=== PATIENT | female | born 1990 | race Caucasian/White ===

== ENCOUNTER → 2019-11-11 11:38 | Outpatient (CLI) | payer OTHER, SELFPAY ==
[2019-11-11 10:36] VITALS: BMI 27.4
[2019-11-11 12:10] LABS: Absolute Lymphocyte Count 1.93 X10^3/uL (0.83-4.51); Absolute Neutrophil Count 7.7 X10^3/uL (2.0-7.7); Basophil# 0.03 X10^3/uL; Basophil% 0.3 % (0-1); Eosinophil# 0.09 X10^3/uL; Eosinophils% 0.9 % (0-5); Hemoglobin 13.1 g/dL (12.0-15.0); Lymphocyte # 1.93 X10^3/ul (4.0); Lymphocyte % 18.4 % (19-41); Mean Corp Hgb Conc 33.6 g/dL (32-36); Mean Corpuscular Hgb 30.1 pg (27.0-32.0); Mean Corpuscular Volume 89.7 fL (81-99); Mean Platelet Vol. 9.8 fl (6.2-12.0); Monocyte# 0.65 X10^3/uL; Monocyte% 6.2 % (0-10); NRBC Flagged by Analyzer 0 % (0-5); Neutrophil # 7.74 X10^3/uL (2.7-7.7); Neutrophil % 73.7 % (47-70); Platelet Count 346 K/mm3 (150-450); RBC Distribution Width CV 12.1 % (11.6-14.6); RBC Distribution Width SD 39.3 fl (35.1-43.9); Red Blood Count 4.35 M/mm3 (4.2-5.4); White Blood Count 10.5 K/mm3 (4.4-11.0)
[2019-11-11 13:40] LABS: HIV - WCH Non-Reactive (Nonreactive); Hepatitis B Surface Antigen Non-Reactive (Nonreactive); Hepatitis C Antibody Non-Reactive (Nonreactive); Rubella IgG 40.2 IU/mL
[2019-11-11 18:58] LABS: Chlamydia Trachomatis by PCR Negative (Negative); Neisserai gonorrhoeae by PCR Negative (Negative); Probe Check PASS; Sample Adequacy Control PASS; Specimen Processing Control PASS
[2019-11-16 12:48] LABS: HPV Reflexed? NOT INDICATED
[2019-11-18 00:51] LABS: Rapid Plasmin Reagin (RPR) NONREACTIVE (NONREACTIVE)
== END ==
PROVIDERS: Referring Provider Obstetrics & Gynecology; Visit Provider Obstetrics & Gynecology
DX: Z34.81 Encounter for supervision of other normal pregnancy, first trimester (principal); Z12.4 Encounter for screening for malignant neoplasm of cervix
CPT/HCPCS: 36415; 85025; 86592; 86703; 86762; 86803; 86850; 86900; 86901; 87086; 87088; 87340; 87491; 87591; 88175; G0145

== ENCOUNTER → 2020-01-07 | Outpatient (CLI) | payer OTHER, SELFPAY ==
[2019-12-24 13:44] VITALS: BMI 27.4
--- NOTE | 2020-01-07 16:02 | US_ITS ---
STUDY: SECOND AND THIRD TRIMESTER OBSTETRICAL ULTRASOUND REASON FOR EXAM: Female, 29 years old ANATOMY SCREEN LMP: 08/17/2019 TECHNIQUE: Transabdominal TECHNICAL QUALITY: Adequate. PRIOR ULTRASOUND: None. FINDINGS: There is a single intrauterine fetus. The fetus is in a variable presentation. There is demonstrated cardiac activity with a heart rate of 152 bpm. There is a normal amniotic fluid volume. The largest amniotic fluid pocket measures 4.7 cm. The placenta is posterior in location and is not low lying. There are Grade 0 placental changes. The cervix measures 3.6 in length. The adnexal regions are not visualized. BIOMETRY: BPD: 4.8: 20 weeks, 3 days HC: 18.4: 20 weeks, 6 days AC: 15.4: 20 weeks, 5 days FL: 3.3: 20 weeks, 2 days CI: FL/BPD: FL/HC: FL/AC: HC/AC: age by current US: 20 weeks, 4 days. ROSA by current US: 05/22/2020. Estimated weight: 357 grams, +/- 52 grams, 48 %. age by prior US: weeks, days. ROSA by prior US: . Age by LMP: 20 weeks, 3 days. ROSA by LMP: 05/23/2020. ANATOMY: Gender: Male Cranium: Normal lateral ventricles. Normal choroid plexus. Normal cerebellum. Normal cisterna magna. Normal face, nose and lips. Chest: Normal 4-chamber heart. Abdomen/Pelvis: Normal diaphragm. Normal stomach. Normal abdominal wall. Normal cord insertion. Normal 3 vessel cord. Normal kidneys. Normal bladder. Spine: Normal cervical spine. Normal thoracic spine. Normal lumbar spine. Normal sacrum. Extremities: Normal bilateral upper extremities. Normal bilateral lower extremities. US/OB Anatomy Scan IMPRESSION: Single live fetus in a variable presentation. No demonstrated anatomic abnormality. Placenta is grade 0 and is not low-lying. Cervix is closed. age by current US: 20 weeks, 4 days. ROSA by current US: 05/22/2020. Estimated weight: 357 grams, +/- 52 grams, 48 %. Electronically Signed: Mansoor Butterfield MD at 20:45 EDT , Service support ,
== END | disposition home or self-care (01) ==
LOC: OPUS 16:02
PROVIDERS: Referring Provider Obstetrics & Gynecology; Visit Provider Obstetrics & Gynecology
DX: Z34.90 Encounter for supervision of normal pregnancy, unspecified, unspecified trimester (principal)
CPT/HCPCS: 76805

== ENCOUNTER → 2020-02-23 | Outpatient (CLI) | payer OTHER, SELFPAY ==
[2020-01-27 13:59] VITALS: BMI 27.4
[2020-02-23 09:32] LABS: Absolute Lymphocyte Count 1.66 X10^3/uL (0.83-4.51); Absolute Neutrophil Count 7.1 X10^3/uL (2.0-7.7); Basophil# 0.03 X10^3/uL; Basophil% 0.3 % (0-1); Eosinophil# 0.11 X10^3/uL; Eosinophils% 1.2 % (0-5); Hematocrit 36.4 % (37-47); Hemoglobin 11.9 g/dL (12.0-15.0); Lymphocyte # 1.66 X10^3/ul (4.0); Lymphocyte % 17.7 % (19-41); Mean Corp Hgb Conc 32.7 g/dL (32-36); Mean Corpuscular Hgb 29.8 pg (27.0-32.0); Mean Corpuscular Volume 91.2 fL (81-99); Monocyte# 0.44 X10^3/uL; Monocyte% 4.7 % (0-10); NRBC Flagged by Analyzer 0 % (0-5); Neutrophil % 75.6 % (47-70); Platelet Count 279 K/mm3 (150-450); RBC Distribution Width CV 12.6 % (11.6-14.6); RBC Distribution Width SD 41.9 fl (35.1-43.9); Red Blood Count 3.99 M/mm3 (4.2-5.4); White Blood Count 9.4 K/mm3 (4.4-11.0)
[2020-02-23 09:42] LABS: Glucose Challenge Gest 1H 50g 130 mg/dL (70-140)
== END | disposition home or self-care (01) ==
LOC: PAVLAB 09:18
PROVIDERS: Referring Provider Obstetrics & Gynecology; Visit Provider Obstetrics & Gynecology
DX: Z34.90 Encounter for supervision of normal pregnancy, unspecified, unspecified trimester (principal)
CPT/HCPCS: 36415; 82950; 85025

== ENCOUNTER 2020-03-25 21:40 | Outpatient (CLI) | payer OTHER, SELFPAY ==
[2020-03-16 11:45] VITALS: BMI 27.4
[2020-03-25 21:55] VITALS: BMI 29.7
[2020-03-25 22:01] VITALS: PULSE 95; O2SAT 99
[2020-03-25 22:02] VITALS: TEMP 37.1
[2020-03-25 22:03] VITALS: BP 114/63; PULSE 93
[2020-03-25 22:55] LABS: ROM Internal Control Test YES-OK TO RESULT pt. (Internal QC); ROM Patient Test Negative (Negative)
--- NOTE | 2020-03-27 12:51 | OB.TRI.PN ---
Progress Notes Date of Service: 03/25/20 Progress Note: Patient presents for triage evaluation secondary to questionable loss of fluid FHT: 140 Moderate variability reactive no decelerations category I tracing [place]: No regular contractions Assessment and plan: Threatened labor with negative ROM plus no rupture membranes reactive NST, reassuring maternal and status patient discharged to home to follow-up as scheduled. See problem list details for additional plan information. Laboratory Studies: Laboratory Tests 03/25/20 Range/Units 22:15 Vag Amniotic Fld Detect Negative (Negative) - Problem List (1) Vaginal discharge Status: Acute Comment: seen 03/24 ROM plus negative dc home Multi Select Codes - Urinary/Genital Urinary/Genital CPT Codes: 02133-06 non-stress test Interp
== END 2020-03-25 23:10 | disposition home or self-care (01) ==
LOC: WPOUT 21:49 → WP 21:50
PROVIDERS: Visit Provider Obstetrics & Gynecology
DX: O60.00 Preterm labor without delivery, unspecified trimester (principal); Z3A.00 Weeks of gestation of pregnancy not specified
CPT/HCPCS: 59025; 59050; 84112; 99218; G0378

== ENCOUNTER 2020-04-20 21:17 | Outpatient (CLI) | payer OTHER, SELFPAY ==
[2020-04-18 15:01] VITALS: BMI 29.7
[2020-04-20 21:33] VITALS: PULSE 82; O2SAT 100
[2020-04-20 21:35] VITALS: BP 111/66; PULSE 78; TEMP 36.9
[2020-04-20 21:53] VITALS: BMI 30.4
[2020-04-20 22:14] LABS: Color, Urine Yellow (Yellow); Glucose, Dipstick Normal (Normal); Leukocyte Esterase-Dipstick 100 /ul (Negative); Nitrite-Dipstick Negative (Negative); Occult Blood-Urine 250 /ul (Negative); Protein-Dipstick Negative (Negative); Urine Bilirubin Dipstick Negative (Negative); Urine Clarity Sl. Cloudy (Clear); Urine Urobilinogen Normal (Normal)
[2020-04-20 22:26] LABS: Ketone-Dipstick 150 mg/dl (Negative)
[2020-04-21 02:25] VITALS: BP 117/66; PULSE 94
[2020-04-21 02:26] VITALS: TEMP 37.1
--- NOTE | 2020-05-01 13:14 | OB.TRI.PN ---
Progress Notes Date of Service: 04/20/20 Progress Note: Patient presents for triage evaluation secondary to false labor FHT: 140 Moderate variability reactive no decelerations category I tracing [place]: no regular Contractions Assessment and plan: false labor Reactive NST, reassuring maternal and status patient discharged to home to follow-up as scheudled See problem list details for additional plan information. Laboratory Studies: Laboratory Tests 04/20/20 Range/Units 22:00 Urine Color Yellow (Yellow) Urine Clarity Sl. Cloudy (Clear) Urine pH 6.0 (5.0 - 8.0) Ur Specific [place] 1.020 (1.002-1.030) Urine Protein Negative (Negative) mg/dl Urine Glucose (UA) Normal (Normal) mg/dl Urine Ketones 150 H (Negative) mg/dl Urine Occult Blood 250 H (Negative) /ul Urine Nitrite Negative (Negative) Urine Bilirubin Negative (Negative) mg/dL Urine Urobilinogen Normal (Normal) mg/dl Ur Leukocyte Esterase 100 H (Negative) /ul Multi Select Codes - Urinary/Genital Urinary/Genital CPT Codes: 73177-10 non-stress test Interp
== END 2020-04-21 00:04 | disposition home or self-care (01) ==
LOC: WPOUT 21:23 → WP 21:23
PROVIDERS: Visit Provider Obstetrics & Gynecology
DX: O47.9 False labor, unspecified (principal); Z3A.00 Weeks of gestation of pregnancy not specified
CPT/HCPCS: 59025; 59050; 81002; 87086; 87088; 99218; G0378

== ENCOUNTER 2020-04-24 13:25 | Outpatient (CLI) | payer OTHER, SELFPAY ==
[2020-04-24 13:40] VITALS: BP 115/63; PULSE 113
[2020-04-24 13:42] VITALS: BP 115/63; PULSE 120; PULSE 124; TEMP 36.4; O2SAT 97
[2020-04-24 13:50] VITALS: BMI 29.6
--- NOTE | 2020-04-30 09:19 | OB.TRI.PN ---
Progress Notes Date of Service: 04/24/20 Progress Note: Patient seen in triage for rule out labor. Cervix unchanged from office and unchanged again on recheck. NST reactive. Discharged to home in stable condition. - Problem List (1) False labor Status: Acute Multi Select Codes - Urinary/Genital Urinary/Genital CPT Codes: 79893-99 non-stress test Interp
== END 2020-04-24 14:40 | disposition home or self-care (01) ==
PROVIDERS: Referring Provider Obstetrics & Gynecology; Visit Provider Obstetrics & Gynecology
DX: O47.9 False labor, unspecified (principal); Z3A.00 Weeks of gestation of pregnancy not specified
CPT/HCPCS: 59025; 59050; 99218; G0378

== ENCOUNTER → 2020-04-27 | Outpatient (CLI) | payer OTHER, SELFPAY ==
[2020-04-27 11:51] VITALS: BMI 29.6
== END | disposition home or self-care (01) ==
LOC: LABSPEC 17:13
PROVIDERS: Referring Provider Obstetrics & Gynecology; Visit Provider Obstetrics & Gynecology
DX: Z34.90 Encounter for supervision of normal pregnancy, unspecified, unspecified trimester (principal)
CPT/HCPCS: 87081

== ENCOUNTER 2020-05-07 16:35 | Inpatient (IN) | payer OTHER, SELFPAY ==
[2020-05-03 11:39] VITALS: BMI 29.6
[2020-05-07] VITALS (19 sets, daily range): BP systolic 104–130; BP diastolic 50–82; PULSE 74–113; TEMP 36.8–37.1; O2SAT 97–100; BMI 29.5
[2020-05-07 16:33] LABS: ROM Internal Control Test YES-OK TO RESULT pt. (Internal QC)
[2020-05-07 16:34] LABS: ROM Patient Test POSITIVE (Negative)
[2020-05-07 18:20] LABS: Absolute Lymphocyte Count 1.89 X10^3/uL (0.83-4.51); Absolute Neutrophil Count 9.6 X10^3/uL (2.0-7.7); Basophil# 0.03 X10^3/uL; Basophil% 0.2 % (0-1); Eosinophil# 0.08 X10^3/uL; Eosinophils% 0.6 % (0-5); Hematocrit 34.6 % (37-47); Hemoglobin 11.6 g/dL (12.0-15.0); Lymphocyte # 1.89 X10^3/ul (4.0); Lymphocyte % 15.2 % (19-41); Mean Corp Hgb Conc 33.5 g/dL (32-36); Mean Corpuscular Hgb 28.4 pg (27.0-32.0); Mean Corpuscular Volume 84.6 fL (81-99); Mean Platelet Vol. 10.5 fl (6.2-12.0); Monocyte# 0.76 X10^3/uL; Monocyte% 6.1 % (0-10); NRBC Flagged by Analyzer 0 % (0-5); Neutrophil # 9.59 X10^3/uL (2.7-7.7); Neutrophil % 77.3 % (47-70); Platelet Count 312 K/mm3 (150-450); RBC Distribution Width CV 13.1 % (11.6-14.6); RBC Distribution Width SD 39.8 fl (35.1-43.9); Red Blood Count 4.09 M/mm3 (4.2-5.4); White Blood Count 12.4 K/mm3 (4.4-11.0)
[2020-05-07] MEDS: Lactated Ringers 1,000 ML 50 ML IV (18:50)
[2020-05-07] MEDS: Oxytocin 30 units/NS 500 ml 30 UNITS/500 ML IV.SOLN IV (18:53)
[2020-05-07] MEDS: 0.9% Saline Lock 10 ML Syringe IV (18:57)
--- NOTE | 2020-05-07 19:42 | PCM.HP.OB ---
- Problem List (1) Rupture of membranes with clear amniotic fluid Status: Acute (2) 37 weeks gestation of Status: Acute Comment: COVID TESTING ORDERED 05/04/2020sc (3) False labor Status: Acute (4) Influenza vaccination declined Status: Acute (5) Status: Acute Qualifiers: Comment: nipt low risk and carrier screening neg ; declined afp screening. normal anatomy (6) Supervision of normal Status: Acute Qualifiers: Comment: PRR ROSA 05/23/20 boy Michael Snider Parker BF Owen History Date of Admission: 05/07/20 Final ROSA: 05/23/20 Gestational age: 37 Weeks and 5 Days History of this : This is a 29 year-old, G 6, P 3, at 37 weeks gestational age admitted for rupture of membranes at 142. Having regular contractions on the toco, but not feeling contractions. Denies VB and DFM. Surgical History: Surgical History (Last Reviewed 05/03/20 @ 11:32 by Luz Sotelo) History of foot surgery Z98.890 Allergies No Known Allergies Allergy (Verified 05/03/20 11:32) Smoking Status: Never smoker Alcohol: None NST - FHR Rate Baby A Baseline: 130 Variability:: Moderate Accelerations:: 15 x 15 Decelerations:: None NST Reactive:: Yes FHR Category:: Category I Uterine Activity:: q2-5min History Past Pregnancies: Pregancy History 6 Elective abortions Hx Para 3 Spontaneous abortions 2 Hx # Term Pregnancies Ectopic pregnancies Hx # Pregnancies Multiple births # of living children 3 Past Pregnancies Del. Date Name GA/Weeks Outcome Route Bth Weight Gen Labor Lgth Anesthesia Del Locatn Provider FOB Unknown 2011 Maura Holloway 41 live - full term 7lbs 6oz Female 4 none [facility] Unknown 2013 Moncho Holloway 38 live - full term 7lbs 4oz Male 12 epidural [facility] Dr. Shawn Flaherty Unknown 2017 Cristóbal Holloway 39 live - full term 8lbs 14oz Male 12 epidural [facility] Delivery Date: On 11/11/19 @ 10:42 Yanely Madera No complications, post dates, no induction Delivery Date: On 11/11/19 @ 10:44 Yanely Madera Pitocin SROM Delivery Date: On 11/11/19 @ 10:45 Yanely Madera induction at 39w1d Labs: Mom's Labs & Results 05/07/20 05/07/20 05/07/20 16:15 18:00 18:00 WBC 12.4 H RBC 4.09 L Hgb 11.6 L Hct 34.6 L MCV 84.6 MCH 28.4 MCHC 33.5 RDW Std Deviation 39.8 RDW Coeff of Iman 13.1 Plt Count 312 MPV 10.5 Immature Gran % (Auto) 0.600 Neut % (Auto) 77.3 H Lymph % (Auto) 15.2 L [place] % (Auto) 6.1 Eos % (Auto) 0.6 Baso % (Auto) 0.2 Absolute Neuts (auto) 9.6 H Absolute Lymphs (auto) 1.89 Nucleated RBC % 0 Vag Amniotic Fld Detect POSITIVE H Blood Type B POSITIVE Antibody Screen NEGATIVE Course Did the patient receive Yes care? Labs Blood Type: B RH: POSITIVE RPR/VDRL/Syphilis Nonreactive Rubella status Immune HbSAg Negative Date Done: 11/11/19 Chlamydia Negative Gonorrhea Negative HIV/AIDS Non-Reactive Group B Strep: Negative Current Obstetrical History Gestational Diabetes No Incompetent Cervix No Infertility No IUGR No Macrosomia No Hypertension/Pre-eclampsia No Placenta Previa/Abruption No PTL/PROM No Uterine anomaly No Oligohydramnios No Polyhydramnios No Multiple gestation No Past Medical History Asthma No Diabetes No Hypertension No Heart disease No Mitral valve prolapse No Neurologic/Seizure disorder/ No Migraines Kidney disease No Liver disease No Varicosities No Clotting disorders/Hx of DVT No Thyroid Dysfunction No Other medical diseases No Psychiatric disorders No Major trauma No Abnormal PAP smear No Sleep apnea No Mammogram in the last 2 years No Social History Marital Status: SINGLE Alleged father Richard Hx Smoking No Smoking Status Never smoker Expected Infant Delivery Method: Spontaneous Vaginal Describe any other labor & delivery plans:: Labor Preferences-. labor support person: Richard. pain management options preferred: minimal intervention open to epidural. Does not typically like touch when in pain. Interested in tub in labor. cut cord/dad catch: yes. : yes. PP control planned: nexplanon. Specific Issue/Plans. flu vaccine: decline. tdap vaccine: given 02/22. rhogam: na. LARC form signed: declined 04/12 Review of Systems Constitutional: Denies: Fever, Night Sweats HEENT: Denies: Sore Throat Cardiovascular: Denies: Chest Pain, Edema, Light Headedness Respiratory: Denies: Cough, Shortness of Breath Gastrointestinal: Reports: Abdominal Pain. Denies: Diarrhea, Nausea, Vomiting Genitourinary: Denies: Dysuria, Frequency Gynecological: Reports: Vaginal discharge - leakage of fluid. Denies: Vaginal bleeding, Vaginal itching Neurological: Denies: Numbness Psychiatric: Denies: Anxiety, Depression Physical Exam Vitals: Vital Signs Temp Pulse BP Pulse Ox 98.8 F 85 114/65 98 05/07/20 19:15 05/07/20 19:15 05/07/20 19:15 05/07/20 19:15 General: Alert, Oriented x3, Cooperative, No apparent distress, Well developed, Well nourished HEENT: Atraumatic, PERRLA, EOMI, Normocephalic Cardiovascular: Regular rate Lungs: Normal air movement Abdomen: Soft, Non Tender, Non-Distended, Gravid, Appropriate for Gestational Age Neurological: Cranial nerves II-XII grossly intact, Neuro grossly intact RELIABILITY SPECIALIST: Normal external genitalia Estimated gestational size: Appropriate for gestational size Presentation: Cephalic Cervix Dilation (cm): 2.5 Station: -3 Effacement (%): 40 Assessment/Plan All Active Problems (Last Reviewed 05/03/20 @ 11:32 by Luz Sotelo) Rupture of membranes with clear amniotic fluid (Acute) 37 weeks gestation of (Acute) False labor (Acute) Influenza vaccination declined (Acute) (Acute) Supervision of normal (Acute) This is a 29 year-old, G6, P3, at 37 weeks gestational age. Patient presents with rupture of membranes for clear fluid - plan expectant management for , pitocin PRN if needed Pain management: plans natural labor. GBS negative. Management of any complications: none COVID testing: Not yet resulted Blood type B+ Rubella immune I have reviewed the [facility] and made any clinically relevant updates.
[2020-05-07] MEDS: fentaNYL 100 MCG/2 ML Ampul IV (22:05)
[2020-05-07] MEDS: Lactated Ringers 500 ML 999 ML IV (23:00)
[2020-05-07] MEDS: fentaNYL-bupivacaine (epidural) 100 ML BAG EPIDURAL (23:56)
[2020-05-08] VITALS (60 sets, daily range): BP systolic 97–131; BP diastolic 50–78; PULSE 64–188; RESP 16–18; TEMP 36.7–37.5; O2SAT 77–100
[2020-05-08] MEDS: Ondansetron 4 MG/2 ML Vial IV (01:34)
[2020-05-08] MEDS: Lactated Ringers 500 ML 999 ML IV (01:38)
[2020-05-08] MEDS: Oxytocin 30 units/NS 500 ml 30 UNITS/500 ML IV.SOLN 334 UNITS IV (02:22)
--- NOTE | 2020-05-08 02:28 | PCM.OPRPT ---
Problem List (1) Rupture of membranes with clear amniotic fluid Status: Acute (2) 37 weeks gestation of Status: Acute Comment: COVID TESTING ORDERED 05/04/2020sc (3) False labor Status: Acute (4) Influenza vaccination declined Status: Acute (5) Status: Acute Qualifiers: Comment: nipt low risk and carrier screening neg ; declined afp screening. normal anatomy (6) Supervision of normal Status: Acute Qualifiers: Comment: PRR ROSA 05/23/20 boy Michael Snider Parker BF Richard Vaginal Delivery Maternal Presentation: Spontaneous Rupture of Membranes 29-year-old at 37 weeks gestation admitted for spontaneous rupture of membranes. She was augmented with Pitocin. Method of Induction: Pitocin Amniotic Membrane Rupture Type: Spontaneous at home Rupture of Membrane time: 1430 Amniotic Fluid Description: Clear Final ROSA: 05/23/20 Gestational age: 37 Weeks and 6 Days Date of Procedure: 05/08/20 Pre-Operative Diagnosis: Spontaneous rupture of membranes Post-Operative Diagnosis: Live male in BEN position. Surgery/ Procedure Performed: Spontaneous Vaginal Delivery Type of Anesthesia: Epidural Description of Procedure: Patient began pushing and delivered the head in the BEN presentation. The head was delivered atraumatically and a tight nuchal cord ?1 was identified and easily reduced over the infant's head]. The anterior and posterior shoulders delivered without complication followed by the rest of the infant and the infant was placed on the maternal abdomen. Delayed cord clamping was employed for approximately 60 seconds. Cord was clamped and cut and gentle traction was applied to the cord and the placenta delivered spontaneously immediately following it was noted to be intact with three-vessel cord. The perineum and vagina were inspected and noted to have no laceration. EBL was 200 cc. Patient and tolerated delivery well. Presentation: BEN Placental Delivery Description: Spontaneous Placenta Disposition: [facility] Cord Vessel Description: 3 Vessels Nuchal Cord Compression: With compression Cord Entanglement: Around neck x 1, tight Drain: Howe to straight drain Estimated Blood Loss: 200 ml Infant A gender: Male Episiotomy Description: None Laceration: None Medications given after delivery: IV Pitocin Complications: None Multi Select Codes - Urinary/Genital Urinary/Genital CPT Codes: 66046 Vaginal Delivery [facility]
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
[2020-05-08] MEDS: Naproxen 250 MG Tablet 500 MG PO ×2 (08:40→17:53)
[2020-05-08] MEDS: Acetaminophen 500 MG Tablet 1000 MG PO ×2 (10:44→18:57)
[2020-05-09 00:40] VITALS: BP 105/73; PULSE 67; RESP 18; TEMP 36.7
[2020-05-09] MEDS: Naproxen 250 MG Tablet 500 MG PO (01:58)
[2020-05-09 03:28] VITALS: BP 110/66; PULSE 75
[2020-05-09 03:31] VITALS: BP 110/66; PULSE 75; RESP 18; TEMP 36.9
--- NOTE | 2020-05-09 07:24 | PCM.PN.OB ---
Patient Problems: Active and Suspected Problems (Last Reviewed 05/03/20 @ 11:32 by Luz Sotelo) Rupture of membranes with clear amniotic fluid (Acute) Subjective: Patient doing well without complaints. Tolerating PO. Ambulating and voiding without difficulty. Breast feeding well. Denies chest pain, shortness of breath, calf pain/swelling, fevers, chills, lightheadedness. - Physical Exam Vitals/I&O's: Vital Signs Temp Pulse Resp BP Pulse Ox 98.4 F 75 18 110/66 100 05/09/20 03:31 05/09/20 03:31 05/09/20 03:31 05/09/20 03:31 05/08/20 04:34 Oxygen Delivery Method Room Air Weight: 177 lb 4.026 oz Body Mass Index (BMI) 29.5 Intake and Output for Last 24 Hours 05/07/20 05/08/20 05/09/20 23:59 23:59 23:59 Intake Total 506.56 / 506.56 1635.11 / 1635.11 Balance 506.56 / 506.56 1635.11 / 1635.11 General: Alert, Oriented x3, Cooperative, No apparent distress, Well developed, Well nourished HEENT: Atraumatic, PERRLA, EOMI, Normocephalic Neck: Supple, No JVD Lungs: Normal air movement Cardiovascular: Regular rate Abdomen: Soft, Non Tender, Non-Distended, - - Fundus firm Extremities: No edema, No Calf Tenderness Neurological: Cranial nerves II-XII grossly intact, Neuro grossly intact Psych/Mental Status: Normal Affect, Appropriate Current Medications Acetaminophen (Tylenol) 1,000 mg PO Q8H PRN PRN PRN Reason: Pain Score 1-3/10 Last Admin: 05/08/20 18:57 Dose: 1,000 mg Documented by: Bisacodyl (Dulcolax) 10 mg RECTAL UD PRN PRN Reason: If no BM Dibucaine (Dibucaine) 1 applic TOPICAL TID PRN PRN; Protocol PRN Reason: Discomfort Hydrocortisone (Hytone) 1 applic TOPICAL TID PRN PRN; Protocol PRN Reason: Discomfort Methylergonovine Maleate (Methergine) 0.2 mg IM X1 PRN PRN Reason: Excess bleeding/uterine atony Naproxen (Naprosyn) 500 mg PO Q8H PRN PRN PRN Reason: Pain Score 1-3/10 Last Admin: 05/09/20 01:58 Dose: 500 mg Documented by: Ondansetron HCl (Zofran) 4 mg IV Q4H PRN PRN PRN Reason: Nausea Oxycodone HCl (Oxyir) 5 - 10 mg PO Q4H PRN PRN PRN Reason: Pain Score 4-10/10 Senna/Docusate Sodium (Senokot-S, Jillian-Colace) 1 - 2 tablet PO DAILY PRN PRN PRN Reason: Constipation Simethicone (Mylicon) 80 mg PO PCHS PRN PRN Reason: Indigestion/Stomach pain Sodium Chloride () 5 - 15 ml IV UD PRN PRN Reason: SALINE FLUSH Medical Necessity - Tobacco Use Smoking Status: Never smoker Assessment/Plan All Active Problems (Last Reviewed 05/03/20 @ 11:32 by Luz Sotelo) Rupture of membranes with clear amniotic fluid (Acute) 37 weeks gestation of (Acute) False labor (Acute) Influenza vaccination declined (Acute) (Acute) Supervision of normal (Acute) s/p PPD #1 1. routine post delivery care 2. breast feeding- support given 3. rh positive 4. rubella immune
--- NOTE | 2020-05-09 07:25 | DCINST_ITS ---
Discharge Diet: No Restrictions Discharge Activity: Return to Normal Activity, May not drive while taking narcotic pain medications., May Shower May resume sexual activity in: 4-6 weeks Additional Activity Instructions:: Nothing in the vagina for 4-6 weeks. You may return to work/school in 6 weeks. Call your doctor if your incision/area has: Continuous Slow Oozing, Sudden Increased Bleeding, Increased Pain/ Swelling, Increased Redness, Foul Smelling Discharge Additional Instructions: If you experience any of the following, contact your healthcare provider. * Bleeding that soaks a pad every hour for 2 hours * Fever 100.4 or higher * Unrelieved incision or abdominal pain * Swelling, redness, discharge or bleeding from your incision or episiotomy site * Your incision begins to separate * Problems urinating (including inability to urinate or burning while urinating). * Visual changes * Severe headache * Flu-like symptoms * Pain or redness in one of both of your breasts * Pain, warmth, tenderness or swelling in your legs, especially the calf area * Frequent nausea and vomiting * Symptoms of depression or anxiety If you experience any of the following, call 911 or go to the nearest Emergency Room. * Chest pain * Problems breathing * Seizure activity * Partial or complete paralysis of a body part, slurred speech, weakness or drooping of the face, or a sudden inability to walk or hold your balance Allergies/Adverse Reactions: Allergies No Known Allergies Allergy (Verified 05/03/20 11:32) Medications to take at Discharge Ibuprofen [Motrin] 800 mg PO Q8H #30 tab 05/09/20 The following prescriptions were given: Ibuprofen [Motrin] 800 mg PO Q8H #30 tab Transmission Status: Pending to [facility] When: Call to make an appointment with your doctor in 6 weeks. If you had elevated Blood Pressure or 4th degree laceration you will need to be seen in 2 weeks. Primary Care Physician: Care Physician,No Primary [Primary Care Provider] - Test Results: Test results from this visit will be discussed in further detail at your follow- up appointment, if applicable.
[2020-05-09 08:51] VITALS: BP 109/61
[2020-05-09 08:52] VITALS: BP 109/61; PULSE 71; PULSE 72; RESP 16; TEMP 36.7; O2SAT 97
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
== END 2020-05-09 12:50 | disposition home or self-care (01) | DRG 807 ==
LOC: WPOUT 16:36 → WP 16:36
PROVIDERS: Admitting Provider Obstetrics & Gynecology; Referring Provider Obstetrics & Gynecology; Visit Provider Obstetrics & Gynecology
DX: O60.14X0 Preterm labor third trimester with preterm delivery third trimester, not applicable or unspecified (principal); Z37.0 Single live birth; O69.1XX0 Labor and delivery complicated by cord around neck, with compression, not applicable or unspecified; Z3A.37 37 weeks gestation of pregnancy
CPT/HCPCS: 59025; 59050; 84112; 85025; 86850; 86900; 86901; 99218; J7120; A4216; G0378; J2405

== ENCOUNTER → 2020-08-21 | Outpatient (CLI) | payer OTHER, SELFPAY ==
[2020-08-21 13:33] VITALS: BMI 26.1
[2020-08-21 20:39] LABS: Chlamydia Trachomatis by PCR Negative (Negative); Neisserai gonorrhoeae by PCR Negative (Negative); Probe Check PASS; Sample Adequacy Control PASS; Specimen Processing Control PASS
== END | disposition home or self-care (01) ==
LOC: LABSPEC 16:22
PROVIDERS: Referring Provider Nurse Practitioner Women's Health; Visit Provider Nurse Practitioner Women's Health
DX: N89.8 Other specified noninflammatory disorders of vagina (principal); Z11.3 Encounter for screening for infections with a predominantly sexual mode of transmission
CPT/HCPCS: 87070; 87205; 87491; 87591

== ENCOUNTER 2021-01-22 12:58 | Emergency (ER) | payer SELFPAY ==
[2020-12-07 11:58] VITALS: BMI 29.5
[2021-01-22 12:59] VITALS: BP 123/80; PULSE 82; RESP 18; TEMP 35.9; O2SAT 98; BMI 25.9
[2021-01-22 13:32] LABS: Absolute Neutrophil Count 6.4 X10^3/uL (2.0-7.7); Basophil# 0.06 X10^3/uL; Basophil% 0.6 % (0-1); Eosinophil# 0.16 X10^3/uL; Eosinophils% 1.7 % (0-5); Hematocrit 42.2 % (37-47); Hemoglobin 13.9 g/dL (12.0-15.0); Lymphocyte % 22.7 % (19-41); Mean Corp Hgb Conc 32.9 g/dL (32-36); Mean Corpuscular Hgb 30.1 pg (27.0-32.0); Mean Corpuscular Volume 91.3 fL (81-99); Mean Platelet Vol. 9.9 fl (6.2-12.0); Monocyte# 0.84 X10^3/uL; Monocyte% 8.7 % (0-10); NRBC Flagged by Analyzer 0 % (0-5); Neutrophil # 6.39 X10^3/uL (2.7-7.7); Neutrophil % 65.9 % (47-70); Platelet Count 433 K/mm3 (150-450); RBC Distribution Width CV 12.1 % (11.6-14.6); RBC Distribution Width SD 40.6 fl (35.1-43.9); Red Blood Count 4.62 M/mm3 (4.2-5.4); White Blood Count 9.7 K/mm3 (4.4-11.0)
[2021-01-22 13:46] LABS: Anion Gap 9 (5-15); BUN 13 mg/dL (7-18); BUN/Creat Ratio 14.6 RATIO (10-20); Calcium,Total 9.3 mg/dL (8.5-10.1); Chloride 106 mmol/L (98-107); Creatinine, Serum 0.89 mg/dL (0.55-1.02); EST Glomerular Filtration Rate 79 mL/min (>60); Est Glom Filt Rate - Afr Amer 96 mL/min (>60); Estimated Creatinine Clearance 80.54 ml/min; Glucose 97 mg/dL (74-106); Potassium 3.7 mmol/L (3.5-5.1); Sodium Level 141 mmol/L (136-145)
[2021-01-22 14:32] LABS: Alcohol, Blood (Medical)-Serum < 3.0 mg/dL
[2021-01-22 15:32] LABS: Amphetamine Urine VISTA NEGATIVE (<1000 ng/mL); Barbiturate Urine VISTA NEGATIVE (< 200 ng/mL); Benzodiazepine Urine VISTA NEGATIVE (< 200 ng/mL); Cocaine Urine VISTA NEGATIVE (< 300 ng/mL); Ecstacy Urine VISTA NEGATIVE (< 500 ng/mL); Methadone Urine VISTA NEGATIVE (< 300 ng/mL); PCP Urine VISTA NEGATIVE (< 25 ng/mL); THC Urine VISTA NEGATIVE (< 50 ng/mL); Vista UDS pH Range 6
--- NOTE | 2021-01-22 15:38 | NURSING ---
MALACHI WITH CRISIS IS AWARE PT IS READY TO BE SEEN
[2021-01-22 16:11] LABS: Internal QC Validated? YES +Cl - CLEAR BKGD; Pregnancy, Serum, hCG Quali. NEGATIVE Negative
--- NOTE | 2021-01-22 17:07 | ED.RN ---
CRISIS IS PHYSICALLY ASSESSING PT AT THIS TIME
--- NOTE | 2021-01-22 17:37 | ED.RN ---
PER JAIME WITH CRISIS; PT WILL NEEP PLACEMENT
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
--- NOTE | 2021-01-22 18:28 | NURSING ---
PER JAIME WITH CRISIS; SHE IS TYPING UP THE ASSESMENT NOW AND IS REFERING THE PT TO [facility]
[2021-01-22 20:30] VITALS: BP 112/72; PULSE 65; RESP 18; O2SAT 100
--- NOTE | 2021-01-22 20:50 | ED.RN ---
attempted to call report to [facility] at this time left message at this time
--- NOTE | 2021-01-22 20:55 | ED.RN ---
attempted to call report to [place] [phone],unable to get anyone to answer,will try again later.
--- NOTE | 2021-01-22 21:23 | ED.RN ---
attempted to call report to [facility], no one answered and left messages to call to recieve report.
[2021-01-22 21:25] VITALS: RESP 18
[2021-01-22 21:46] VITALS: BP 112/72; PULSE 65; RESP 16; TEMP 36.7; O2SAT 100
[2021-01-22 22:12] VITALS: RESP 18
[2021-01-22 23:18] VITALS: RESP 18
--- NOTE | 2021-01-22 23:18 | ED.RN ---
report called to emily ozuna at [facility].
== END 2021-01-23 00:10 ==
LOC: ED 20:22
PROVIDERS: Emergency Provider Emergency Medicine
DX: R45.851 Suicidal ideations (principal)
CPT/HCPCS: 36415; 80048; 80307; 82077; 84703; 85025; 99285

== ENCOUNTER → 2021-02-16 12:24 | Outpatient (CLI) | payer SELFPAY ==
[2021-01-22 12:59] VITALS: BMI 25.9
[2021-02-16 13:24] LABS: hCG Titer Quant., Serum < 1 mIU/mL (1-3)
== END ==
LOC: PAVLAB 12:25
PROVIDERS: Referring Provider Obstetrics & Gynecology; Visit Provider Obstetrics & Gynecology
DX: N91.2 Amenorrhea, unspecified (principal)
CPT/HCPCS: 36415; 84702

== ENCOUNTER → 2021-05-02 10:19 | Outpatient (CLI) | payer MEDICAID, SELFPAY ==
[2021-05-02 11:39] LABS: hCG Titer Quant., Serum 26226 mIU/mL (1-3)
== END ==
PROVIDERS: Referring Provider Obstetrics & Gynecology; Visit Provider Obstetrics & Gynecology
DX: Z34.90 Encounter for supervision of normal pregnancy, unspecified, unspecified trimester (principal)
CPT/HCPCS: 36415; 84702

== ENCOUNTER → 2021-05-04 14:20 | Outpatient (CLI) | payer SELFPAY, MEDICAID ==
--- NOTE | 2021-05-04 14:24 | US_ITS ---
HISTORY: Positive , dating EXAMINATION: US OB less than 14 Weeks with Transvaginal TECHNIQUE: Transvaginal (for optimal evaluation of the adnexa) pelvic ultrasound was performed. Grayscale and color flow Doppler evaluation of the adnexa. COMPARISON: None FINDINGS: Uterus measures 10.1 x 5.6 x 6.7 cm. No myometrial mass demonstrated. Closed cervix. Single intrauterine gestational sac containing pole and yolk sac with heart rate of 133 BPM. Aubrey-rump length measurement of 9.7 mm yields estimated gestational age of 7 weeks 0 days, ROSA 12/21/21. Clinical age also 7 weeks 0 days, based on LMP of 03/16/21. Small hypoechoic fluid collection adjacent to the gestational sac compatible with subchorionic hematoma, measuring 6 x 4 x 4 mm. Amniotic fluid volume subjectively within normal limits. No adnexal mass or significant free pelvic fluid demonstrated. Bilateral ovarian color Doppler flow present. Unremarkable left ovary measures 2.6 x 1.3 x 1.7 cm. Right ovary 3.9 x 2.1 x 2.8 cm with heterogeneous, hyperechoic 2.8 x 1.7 x 2.3 cm cyst. US/Transvaginal w/Preg US IMPRESSION: 1. Single live intrauterine with small subchorionic hematoma. EGA by LMP and crown-rump length measurement are both 7 weeks 0 days. 2. Small complex right ovarian corpus luteum cyst with no significant free pelvic fluid. at 1702 Reported and signed by: Michael Rollins MD Electronically Signed: Michael Rollins MD at 17:01 EDT Tel , Service support ,
== END ==
PROVIDERS: Referring Provider Obstetrics & Gynecology; Visit Provider Obstetrics & Gynecology
DX: Z34.80 Encounter for supervision of other normal pregnancy, unspecified trimester (principal)
CPT/HCPCS: 76817

== ENCOUNTER → 2021-05-14 | Outpatient (CLI) | payer MEDICAID, SELFPAY ==
[2021-05-14 15:44] LABS: Amphetamine Urine VISTA NEGATIVE (<1000 ng/mL); Barbiturate Urine VISTA NEGATIVE (< 200 ng/mL); Benzodiazepine Urine VISTA NEGATIVE (< 200 ng/mL); Cocaine Urine VISTA NEGATIVE (< 300 ng/mL); Ecstacy Urine VISTA NEGATIVE (< 500 ng/mL); Methadone Urine VISTA NEGATIVE (< 300 ng/mL); PCP Urine VISTA NEGATIVE (< 25 ng/mL); THC Urine VISTA NEGATIVE (< 50 ng/mL); Vista UDS pH Range 7
[2021-05-16 22:07] LABS: Chlamydia By Nucleic Acid AMP Negative (Negative)
[2021-05-17 08:10] LABS: Gonococcus By Nucleic Acid AMP Negative (Negative)
== END | disposition home or self-care (01) ==
LOC: LABSPEC 14:48
PROVIDERS: Referring Provider Obstetrics & Gynecology; Visit Provider Obstetrics & Gynecology
DX: Z34.90 Encounter for supervision of normal pregnancy, unspecified, unspecified trimester (principal)
CPT/HCPCS: 80307; 87086; 87088; 87491; 87591

== ENCOUNTER → 2021-06-13 13:51 | Outpatient (CLI) | payer MEDICAID, SELFPAY ==
[2021-06-13 14:10] LABS: Absolute Lymphocyte Count 2.02 X10^3/uL (0.83-4.51); Absolute Neutrophil Count 10.1 X10^3/uL (2.0-7.7); Basophil# 0.04 X10^3/uL; Basophil% 0.3 % (0-1); Eosinophil# 0.15 X10^3/uL; Eosinophils% 1.1 % (0-5); Hematocrit 36.8 % (37-47); Hemoglobin 12.8 g/dL (12.0-15.0); Lymphocyte # 2.02 X10^3/ul (0.83-4.51); Lymphocyte % 15.4 % (19-41); Mean Corp Hgb Conc 34.8 g/dL (32-36); Mean Corpuscular Hgb 30.5 pg (27.0-32.0); Mean Corpuscular Volume 87.6 fL (81-99); Monocyte% 6.1 % (0-10); NRBC Flagged by Analyzer 0 % (0-5); Neutrophil # 10.08 X10^3/uL (2.7-7.7); Neutrophil % 76.6 % (47-70); Platelet Count 381 K/mm3 (150-450); RBC Distribution Width CV 12.8 % (11.6-14.6); RBC Distribution Width SD 40.8 fl (35.1-43.9); White Blood Count 13.2 K/mm3 (4.4-11.0)
[2021-06-13 15:03] LABS: HIV - WCH Non-Reactive (Nonreactive); Hepatitis B Surface Antigen Non-Reactive (Nonreactive); Hepatitis C Antibody Non-Reactive (Nonreactive); NATERA MAILED SPECIMEN; Rubella IgG Reactive (Nonreactive); Syphilis Antibodies Non-reactive
== END ==
PROVIDERS: Referring Provider Obstetrics & Gynecology; Visit Provider Obstetrics & Gynecology
DX: Z34.81 Encounter for supervision of other normal pregnancy, first trimester (principal)
CPT/HCPCS: 36415; 85025; 86703; 86762; 86780; 86803; 86850; 86900; 86901; 87340

== ENCOUNTER → 2021-07-30 12:25 | Outpatient (CLI) | payer MEDICAID, SELFPAY ==
--- NOTE | 2021-07-30 12:27 | US_ITS ---
STUDY: SECOND AND THIRD TRIMESTER OBSTETRICAL ULTRASOUND REASON FOR EXAM: Female, 31 years old anatomy LMP: 03/16/2021 TECHNIQUE: Transabdominal TECHNICAL QUALITY: Adequate. PRIOR ULTRASOUND: 05/04/2021 FINDINGS: There is a single intrauterine fetus. The fetus is in a transverse lie with the head on the maternal right side. There is demonstrated cardiac activity with a heart rate of 143 bpm. There is a normal amniotic fluid volume. The largest amniotic fluid pocket measures 6.6 cm. The amniotic fluid index (CAROLYN) is cm. The placenta is posterior in location and is not low lying. There are Grade 0 placental changes. The cervix measures 5.5 cm in length. The adnexal regions are not visualized. BIOMETRY: BPD: 4.4 cm: 19 weeks, 1 days HC: 16.8 cm: 19 weeks, 3 days AC: 14.1 cm: 19 weeks, 3 days FL: 3.1 cm: 19 weeks, 5 days CI: 73.18% FL/BPD: 71.44% FL/HC: 18.68% FL/AC: 22.12% HC/AC: 1.18 age by current US: 19 weeks, 1 days. ROSA by current US: 12/23/2021. Estimated weight: 301 grams, +/- 45 grams, 53 %. Age by LMP: 19 weeks, 3 days. ROSA by LMP: 12/21/2021. ANATOMY: Gender: Male Cranium: Normal lateral ventricles. Normal choroid plexus. Normal cerebellum. Normal cisterna magna. Normal face, nose and lips. Chest: Normal 4-chamber heart. Echogenic intracardiac focus. Abdomen/Pelvis: Normal diaphragm. Normal stomach. Normal abdominal wall. Normal cord insertion. Normal 3 vessel cord. Normal kidneys. Normal bladder. Spine: Normal cervical spine. Normal thoracic spine. Normal lumbar spine. Normal sacrum. Extremities: Normal bilateral upper extremities. Normal bilateral lower extremities. US/OB Anatomy Scan IMPRESSION: Living intrauterine of 19 weeks 1 day as described above. Echogenic intracardiac focus. Electronically Signed: Kamaljit Groves MD at 15:12 EST Tel , Service support ,
== END ==
PROVIDERS: Visit Provider Obstetrics & Gynecology
DX: Z34.92 Encounter for supervision of normal pregnancy, unspecified, second trimester (principal)
CPT/HCPCS: 76805; 76817

== ENCOUNTER 2021-09-28 11:31 | Outpatient (CLI) | payer MEDICAID, SELFPAY ==
[2021-09-28 12:03] LABS: Absolute Neutrophil Count 8.2 X10^3/uL (2.0-7.7); Basophil# 0.02 X10^3/uL; Basophil% 0.2 % (0-1); Eosinophil# 0.18 X10^3/uL; Eosinophils% 1.7 % (0-5); Hematocrit 36.4 % (37-47); Hemoglobin 12.7 g/dL (12.0-15.0); Lymphocyte % 15.6 % (19-41); Mean Corp Hgb Conc 34.9 g/dL (32-36); Mean Corpuscular Hgb 31.4 pg (27.0-32.0); Mean Corpuscular Volume 89.9 fL (81-99); Mean Platelet Vol. 10.2 fl (6.2-12.0); Monocyte# 0.72 X10^3/uL; Monocyte% 6.6 % (0-10); NRBC Flagged by Analyzer 0 % (0-5); Neutrophil # 8.18 X10^3/uL (2.7-7.7); Neutrophil % 75.3 % (47-70); Platelet Count 280 K/mm3 (150-450); RBC Distribution Width CV 13.2 % (11.6-14.6); RBC Distribution Width SD 43.5 fl (35.1-43.9); Red Blood Count 4.05 M/mm3 (4.2-5.4); White Blood Count 10.9 K/mm3 (4.4-11.0)
[2021-09-28 12:30] LABS: Glucose Challenge Gest 1H 50g 97 mg/dL (70-140)
== END 2021-09-28 23:59 | disposition home or self-care (01) ==
LOC: PAVLAB 11:32
PROVIDERS: Referring Provider Nurse Practitioner Women's Health; Visit Provider Nurse Practitioner Women's Health
DX: Z34.82 Encounter for supervision of other normal pregnancy, second trimester (principal); Z3A.20 20 weeks gestation of pregnancy
CPT/HCPCS: 36415; 82950; 85025

== ENCOUNTER → 2021-11-29 | Outpatient (CLI) | payer MEDICAID, SELFPAY | END | disposition home or self-care (01) | LOC: LABSPEC 16:20 | PROVIDERS: Visit Provider Obstetrics & Gynecology | DX: Z34.90 Encounter for supervision of normal pregnancy, unspecified, unspecified trimester (principal); Z3A.36 36 weeks gestation of pregnancy | CPT/HCPCS: 87081 ==

== ENCOUNTER 2021-12-18 07:20 | Inpatient (IN) | payer MEDICAID, SELFPAY ==
[2021-12-18] VITALS (25 sets, daily range): BP systolic 99–128; BP diastolic 51–77; PULSE 71–103; TEMP 36.8–37.7; O2SAT 98–99; BMI 32.4
[2021-12-18] MEDS: Lactated Ringers 1,000 ML 50 ML IV (08:20)
[2021-12-18 08:39] LABS: Absolute Lymphocyte Count 2.31 X10^3/uL (0.83-4.51); Absolute Neutrophil Count 8.9 X10^3/uL (2.0-7.7); Basophil# 0.04 X10^3/uL; Basophil% 0.3 % (0-1); Eosinophil# 0.13 X10^3/uL; Hemoglobin 11.8 g/dL (12.0-15.0); Lymphocyte # 2.31 X10^3/ul (0.83-4.51); Lymphocyte % 18.5 % (19-41); Mean Corp Hgb Conc 33.7 g/dL (32-36); Mean Corpuscular Hgb 28.5 pg (27.0-32.0); Mean Corpuscular Volume 84.5 fL (81-99); Mean Platelet Vol. 10.4 fl (6.2-12.0); Monocyte# 0.99 X10^3/uL; Monocyte% 7.9 % (0-10); NRBC Flagged by Analyzer 0 % (0-5); Neutrophil # 8.92 X10^3/uL (2.7-7.7); Neutrophil % 71.4 % (47-70); Platelet Count 305 K/mm3 (150-450); RBC Distribution Width CV 13.2 % (11.6-14.6); RBC Distribution Width SD 40.3 fl (35.1-43.9); Red Blood Count 4.14 M/mm3 (4.2-5.4); White Blood Count 12.5 K/mm3 (4.4-11.0)
[2021-12-18] MEDS: Oxytocin 30 units/NS 500 ml 30 UNITS/500 ML IV.SOLN IV (08:41)
[2021-12-18] MEDS: 0.9% Normal Saline Single 100 ML IV.SOLN. INTRA-UTER (09:55)
[2021-12-18] MEDS: Lactated Ringers 500 ML 999 ML IV ×2 (11:44→18:00)
[2021-12-18] MEDS: Lactated Ringers 1,000 ML 200 ML IV ×2 (12:00→15:58)
[2021-12-18] MEDS: Ondansetron 4 MG/2 ML Vial IV (17:22)
[2021-12-18] MEDS: Oxytocin 30 units/NS 500 ml 30 UNITS/500 ML IV.SOLN 334 UNITS IV (18:22)
--- NOTE | 2021-12-18 18:37 | HP.PCM.OB_ITS ---
HPI - General General Date of Admission: 12/18/21 HPI Narrative ALEXANDR HOLLOWAY, is a 31 F who presents for IOL desires PPTL and elective induction. h/o severe ppd. Maternal Data Information ROSA Calculator Estimated Delivery Date Method Current WG Current Estimate 12/21/21 LMP (Certain) 39w 4d PFSH PFSH Medical History Anxiety and depression Echogenic focus of heart of fetus affecting antepartum care of mother Home Medications NK 11/22/21 [History Last Taken Unknown] Allergy/AdvReac Type Severity Reaction Status Date / Time latex AdvReac rash Verified 12/13/21 14:56 Family History Mother Cancer cervical Hypertension Grandfather Lung cancer Surgical History History of foot surgery History of hand surgery Social History Smoking Status: Never smoker alcohol intake: never substance use type: does not use caffeine: Yes what type of physical activity do you participate in: walking seatbelt use: never do you feel safe at home: Yes additional social history: Patient is a stay at home mom History 7 Elective abortions Hx Para 4 Spontaneous abortions 2 Hx # Term Pregnancies Ectopic pregnancies Hx # Pregnancies Multiple births # of living children 4 Past Pregnancies Del. Date Name GA/Weeks Outcome Route Bth Weight Gen Labor Lgth Anesthesia Del Locatn Provider FOB Unknown 2011 Maura Holloway 41 live - full term 7lbs 6 oz Female [address] [facility] Unknown 2013 Moncho Holloway 38 live - full term 7lbs 4 oz Male 12 epidural [facility] Dr. Shawn Flaherty Unknown 2017 Cristóbal Holloway 39 live - full term 8lbs 14 oz Male 12 epidural [facility] 05/08/20 Dillan 37 live - full term 6lb 7oz Male 12 ho urs epidural [facility] Jay Richard Delivery Date: No complications, post dates, no induction [place] Delivery Date: Pitocin SROM [place] Delivery Date: induction at 39w1d [place] Delivery Date: 05/08/20 No notes to display Visit Details Expected Delivery Route/Plan plan IOL december 17 then PPTL december 18. Labor Preferences- labor support person: [] labor intervention preferences: [] pain management options preferred: [] cut cord/dad catch: [] : [] PP control planned: [] discussed possible routes of delivery and associated risks: [] special requests: [] Plans Covid status: non immune counseled regarding risk of covid in vs vaccination and declined vaccination Flu vaccine: declined Tdap vaccine: declined Rhogam: na LARC form signed: declined movement and labor precautions reviewed. Problem list reviewed and updated with the most current plan of care details and appropriate orders placed. Relevant counseling for the gestational age provided. Continue routine care and follow up unless otherwise noted in visit notes/problem list details OB Flowsheet Initial Weight: 162 lb Date -?-?-?-?-?-?-?-?-?-?-?-?- EGA Weight BP Urine Prot -?-?-?-?-?-?-?-?-?-?-?-?- Glucose FHR FuHt Pres Dilation -?-?-?-?-?-?-?-?-?-?-?-?- Effaced St Visit Note 05/14/21 -?-?-?-?-?-?-?-?-?-?-?-?- 8w 3d 162 lb 4 oz (+4 oz) 102/68 -?-?-?-?-?-?-?-?-?-?-?-?- 160 -?-?-?-?-?-?-?-?-?-?-?-?- SM- no vb crampi ng 06/13/21 -?-?-?-?-?-?-?-?-?-?-?-?- 12w 5d 161 lb (-16 oz) 116/62 Negative -?-?-?-?-?-?-?-?-?-?-?-?- Negative 163 -?-?-?-?-?-?-?-?-?-?-?-?- JV- no lof, vag bleeding, or dec fm. doing panorama today. 12/15/21 -?-?-?-?-?-?-?-?-?-?-?-?- 17w 5d 171 lb (+9 lb) 118/79 Negative -?-?-?-?-?-?-?-?-?-?-?-?- Negative 161 -?-?-?-?-?-?-?-?-?-?-?-?- No VB, LOF. Feel ing flutters. Needs to schedule anatomy US 08/09/21 -?-?-?-?-?-?-?-?-?-?-?-?- 20w 6d 173 lb (+11 lb) 120/80 Negative -?-?-?-?-?-?-?-?-?-?-?-?- Negative 145 21 -?-?-?-?-?-?-?-?-?-?-?-?- SM- no vb lof go od fm no regular ctx 09/11/21 -?-?-?-?-?-?-?-?-?-?-?-?- 25w 4d 178 lb 8 oz (+16 lb 8 oz) 120/68 Negative -?-?-?-?-?-?-?-?-?-?-?-?- Negative 138 -?-?-?-?-?-?-?-?-?-?-?-?- MH-No VB, LOF. Feeling more anxious. Would like to start medication. Did start counseling last week. 09/28/21 -?-?-?-?-?-?-?-?-?-?-?-?- 28w 0d 179 lb (+17 lb) 100/80 Negative -?-?-?-?-?-?-?-?-?-?-?-?- Negative 135 28 -?-?-?-?-?-?-?-?-?-?-?-?- SM- no vb lof go od fm no regular ctx 10/25/21 -?-?-?-?-?-?-?-?-?-?-?-?- 31w 6d 184 lb 8 oz (+22 lb 8 oz) 120/72 Negative -?-?-?-?-?-?-?-?-?-?-?-?- Negative 130 32 -?-?-?-?-?-?-?-?-?-?-?-?- SM- no vb lof go od fm no regular ctx 11/22/21 -?-?-?-?-?-?-?-?-?-?-?-?- 35w 6d 185 lb 4 oz (+23 lb 4 oz) 122/70 Negative -?-?-?-?-?-?-?-?-?-?-?-?- Negative 130 36 -?-?-?-?-?-?-?-?-?-?-?-?- SM- no vb lof go od fm no regular ctx SM- no vb lof good fm no reg ular ctx discussed IOL at 39 and sterilization, wait to schedule IOL but note sent through to schedule PPTL 11/29/21 -?-?-?-?-?-?-?-?-?-?-?-?- 36w 6d 186 lb (+24 lb) 114/62 Negative -?-?-?-?-?-?-?-?-?-?-?-?- Negative 130 37 Cephalic 1 -?-?-?-?-?-?-?-?-?-?-?-?- SM- no vb lof go od fm no regular ctx 12/06/21 -?-?-?-?-?-?-?-?-?-?-?-?- 37w 6d 186 lb 6 oz (+24 lb 6 oz) 118/64 Negative -?-?-?-?-?-?-?-?-?-?-?-?- Negative 130 38 Cephalic 1 -?-?-?-?-?-?-?-?-?-?-?-?- SM- no vb lof go od fm no regular ctx discussed IOL and PPTL the next day 12/13/21 -?-?-?-?-?-?-?-?-?-?-?-?- 38w 6d 187 lb 4 oz (+25 lb 4 oz) 130/82 Negative -?-?-?-?-?-?-?-?-?-?-?-?- Negative 134 38 Cephalic 1 -?-?-?-?-?-?-?-?-?-?-?-?- 30 -3 JV- no lof , vaginal bleeding, or dec fm. IOL set up for friday. 12/18/21 -?-?-?-?-?-?-?-?-?-?-?-?- 39w 4d 189 lb (+27 lb) 128/77 105/60 105/60 126/60 111/59 104/53 100/51 108/54 112/58 120/56 -?-?-?-?-?-?-?-?-?-?-?-?- -?-?-?-?-?-?-?-?-?-?-?-?- NST FHR Rate Baby A Baseline: 130 Variability:: Moderate Accelerations:: 15 x 15 Decelerations:: None NST Reactive:: Yes FHR Category:: Category I Uterine Activity:: irregular ROS Constitutional Constitutional: Reports systems reviewed and no addt'l complaints, except as documented Eyes Eyes: Denies change in vision ENT HEENT: Reports systems reviewed and no addt'l complaints, except as documented; Denies headache(s) Cardiovascular Cardiovascular: Reports systems reviewed and no addt'l complaints, except as documented; Denies chest pain or dyspnea Respiratory/Chest Respiratory/Chest: Reports systems reviewed and no addt'l complaints, except as documented Gastrointestinal Gastrointestinal: Reports systems reviewed and no addt'l complaints, except as documented; Denies abdominal pain Genitourinary Genitourinary: Reports systems reviewed and no addt'l complaints, except as documented, contractions Details: present (irregular) and movement Details: present; Denies dysuria or genital lesions Musculoskeletal Musculoskeletal: Reports systems reviewed and no addt'l complaints, except as documented Neurologic Neurologic: Reports systems reviewed and no addt'l complaints, except as documented Endocrine Endocrinology: Reports systems reviewed and no addt'l complaints, except as documented Vital Signs Vital Signs Vital Signs: 12/18/21 07:38 12/18/21 07:39 12/18/21 07:40 Temperature 99.3 F H Temperature Source Pulse Rate 91 88 Blood Pressure 128/77 H BP Systolic 128 BP Diastolic 77 Pulse Ox 98 99 12/18/21 08:47 12/18/21 10:10 12/18/21 10:40 Temperature Temperature Source Pulse Rate 88 71 86 Blood Pressure 105/60 105/60 126/60 H BP Systolic 105 105 126 BP Diastolic 60 60 60 Pulse Ox 12/18/21 13:06 12/18/21 13:15 12/18/21 13:57 Temperature 98.7 F Temperature Source Temporal Pulse Rate 88 85 78 Blood Pressure 111/59 L 104/53 L BP Systolic 111 104 BP Diastolic 59 53 Pulse Ox 99 12/18/21 14:31 12/18/21 14:45 12/18/21 14:49 Temperature 98.6 F Temperature Source Temporal Pulse Rate 81 Blood Pressure 100/51 L BP Systolic 100 BP Diastolic 51 Pulse Ox 12/18/21 14:50 12/18/21 16:16 12/18/21 18:28 Temperature Temperature Source Pulse Rate 80 85 103 H Blood Pressure 108/54 L 112/58 L 120/56 L BP Systolic 108 112 120 BP Diastolic 54 58 56 Pulse Ox Weight Weight: 189 lb Body Mass Index (BMI) 32.4 Physical Exam Const alert, oriented x3, no apparent distress and healthy appearing HEENT normocephalic and moist oral mucous membranes Head and Scalp: atraumatic Neck full ROM, no lymphadenopathy, supple and thyroid normal General: trachea midline Lymph Lymphatic: no lymphadenopathy noted Chest inspection of chest normal Resp normal respiratory effort Cardio regular rate GI normal to inspection, nondistended, normoactive bowel sounds, soft to palpation and non-tender Inspection: gravid external exam normal Manual OB Exam: estimated gestational size appropriate, presentation cephalic, dilated, effaced and station Extremity normal to inspection General Extremity: Negative for edema Skin no rashes or lesions noted Neuro no focal motor deficits and deep tendon reflexes 2+ bilaterally Motor Exam: strength 5/5 throughout and clonus absent Psych mental status grossly normal Labs Labs Labs: Blood Type B POSITIVE Antibody Screen NEGATIVE Hct 35.0 % (37-47) L Hgb 11.8 g/dL (12.0-15.0) L Obstetrics US Syphilis Total Ab Non-reactive Rubella IgG Antibody Reactive (Nonreactive) Hep Bs Antigen Non-Reactive (Nonreactive) Chlamydia DNA (FRANCK) Negative (Negative) Neisseria gonorrhoeae DNA (FRANCK) Negative (Negative) HIV 1&2 Antibody Non-Reactive (Nonreactive) Glucose 1 Hr 50 gm 97 mg/dL (70-140) Rhogam given: No Miscellaneous Test Assessment & Plan (1) Depression with anxiety: COMMENT: h/o suicidal ideation, has been prescribed abilify but not taking it. counseling started. Rx zoloft 09/11/21 (2) : QUALIFIERS: Weeks of gestation: 38 weeks Qualified Code(s): Z3A.38 - 38 weeks gestation of COMMENT: GBS negative, NL anatomy, NIPT low risk, desires genetics, neg carrier (3) Supervision of other normal : COMMENT: PRR ROSA: 12/21/20, boy, PC: Michael Lorenzo Parker, Connor BF: Richard (4) PTSD (post-traumatic stress disorder): COMMENT: from her first marriage (5) Thrombosed hemorrhoids: (6) Sterilization: COMMENT: title 19 signed plan IOL at 39 and PPTL the next day PLAN: Patient presents IOL, plan management for with fb pitocin. Pain management: natural. GBS negative. Management of any complications: none I have reviewed the [facility] and made any clinically relevant updates.
--- NOTE | 2021-12-18 18:39 | OP.PCM_ITS ---
Assessment & Plan (1) Depression with anxiety: COMMENT: h/o suicidal ideation, has been prescribed abilify but not taking it. counseling started. Rx zoloft 09/11/21 (2) : QUALIFIERS: Weeks of gestation: 38 weeks Qualified Code(s): Z3A.38 - 38 weeks gestation of COMMENT: GBS negative, NL anatomy, NIPT low risk, desires genetics, neg carrier (3) Supervision of other normal : COMMENT: PRR ROSA: 12/21/20, boy, PC: Michael Lorenzo Parker, Connor BF: Richard (4) PTSD (post-traumatic stress disorder): COMMENT: from her first marriage Maternal Data Information ROSA Calculator Estimated Delivery Date Method Current WG Current Estimate 12/21/21 LMP (Certain) 39w 4d Vaginal Delivery Operative Information Date of Procedure: 12/18/21 Pre-Operative Diagnosis: iol elective Post-Operative Diagnosis: same Surgery / Procedure Performed: Spontaneous Vaginal Delivery Type of Anesthesia: None Special Medications: none Estimated Blood Loss: 100 Fluids Replaced: crystalloid Findings Description of Procedure: Patient began pushing and delivered the head in the ERMA presentation. The head was delivered atraumatically . The anterior and posterior shoulders delivered without complication followed by the rest of the infant and the was placed on the maternal abdomen. Delayed cord clamping was employed for approximately 60 seconds. Cord was clamped and cut and gentle traction was applied to the cord and the placenta delivered spontaneously immediately following it was noted to be intact with three-vessel cord. The perineum and vagina were inspected and noted to have no laceration. EBL was 100 cc. Patient and infant tolerated delivery well. Presentation: ERMA Amniotic Membrane Rupture Type: Artificial Amniotic Fluid Description: Clear Placental Delivery Description: Spontaneous Placenta Disposition: [facility] Cord Vessel Description: 3 Vessels Cord Entanglement: None Delayed Cord Clamping: Yes Post Vaginal Delivery Medications Given After Delivery: IV Pitocin Episiotomy Description: None Laceration: None Complication Complications: None Procedures Urinary/Genital [id number]: [id number] Vaginal Delivery+PP Care([facility])
--- NOTE | 2021-12-18 18:41 | PCM.DC ---
Discharge Instructions Diet Discharge Diet: No restrictions Activity Discharge Activity: Return to Normal Activity, May Not Drive (while taking narcotic pain medications.) and May Shower May resume sexual activity in: 4-6 weeks Dressing / Incision Call your doctor if your incision/area has: Continuous Slow Oozing, Sudden Increased Bleeding, Increased Pain/ Swelling, Increased Redness and Foul Smelling Discharge Follow Up Care Please Follow Up With: Jenna Lobo MD When: Call [phone] to make an appointment with your doctor in 6 weeks. If you had elevated blood pressure or 4th degree laceration, you will need to be seen in 2 weeks. Test Results: Test results from this visit will be discussed in further detail at your follow-up appointment, if applicable. Discharge Plan Admission Admit Date/Time: 12/18/21 07:20 Attending Provider: Jenna Lobo Primary Care Provider: Care Physician,Paris Primary Discharge Orders/Prescriptions Prescriptions: New naproxen [naproxen] 500 MG tablet 500 mg PO BID PRN PRN (Reason: Pain) Qty: 30 RF: 1 No Action NK RF: 0 Referrals / Follow Up: Care Physician,No Primary [Primary Care Provider] - Disposition Disposition (needs filled in before D/C Order can be placed): Home, Self Care
[2021-12-18] MEDS: Acetaminophen 500 MG Tablet PO (20:11)
[2021-12-18] MEDS: 0.9% Saline Lock 10 ML Syringe IV (21:23)
--- NOTE | 2021-12-18 21:29 | NURSING ---
IV to right AC was leaking. pt requested IV to be discontinued and to be restarted before scheduled tubal ligation on afternoon. IV d/cd pt tolerated well
[2021-12-18] MEDS: Naproxen 500 MG Tablet PO (22:33)
[2021-12-19] VITALS (12 sets, daily range): BP systolic 95–115; BP diastolic 51–72; PULSE 60–77; RESP 14–18; TEMP 36.1–37.3; O2SAT 95–98
[2021-12-19] MEDS: Acetaminophen 500 MG Tablet 1000 MG PO ×2 (04:16→12:36)
--- NOTE | 2021-12-19 07:55 | PCM.PN.OB ---
Subjective Subjective Patient doing well without complaints. Tolerating PO. Ambulating and voiding without difficulty. Feeding well. Denies chest pain, shortness of breath, calf pain/swelling, fevers, chills, lightheadedness. Objective Data Objective Data Vital Signs: Vital Signs Temp Pulse Resp BP Pulse Ox 97.7 F L 63 14 95/51 L 99 12/19/21 04:09 12/19/21 04:09 12/19/21 04:09 12/19/21 04:09 12/18/21 13:15 Oxygen Delivery Method Room Air Weight: 189 lb Body Mass Index (BMI) 32.4 Intake & Output: Intake and Output for Last 24 Hours 12/17/21 12/18/21 12/19/21 23:59 23:59 23:59 Intake Total 3074.52 / 3074.52 Output Total 200 / 200 Balance 2874.52 / 2874.52 Lab / Micro Data Result Diagrams: 12/18/21 08:20 Labs: Laboratory Results - last 24 hr 12/18/21 08:20: WBC 12.5 H, RBC 4.14 L, Hgb 11.8 L, Hct 35.0 L, MCV 84.5, MCH 28.5, MCHC 33.7, RDW Std Deviation 40.3, RDW Coeff of Iman 13.2, Plt Count 305, MPV 10.4, Immature Gran % (Auto) 0.900, Neut % (Auto) 71.4 H, Lymph % (Auto) 18.5 L, [place] % (Auto) 7.9, Eos % (Auto) 1.0, Baso % (Auto) 0.3, Absolute Neuts (auto) 8.9 H, Absolute Lymphs (auto) 2.31, Nucleated RBC % 0 12/18/21 08:20: Blood Type B POSITIVE, Antibody Screen NEGATIVE Micro: Microbiology 12/18/21 08:20 Nasal Secretion SARS-CoV-2 Antigen (Rapid) - Final Physical Exam Const alert and oriented x3 HEENT normocephalic Eyes PERRL Neck full ROM Resp normal respiratory effort GI soft to palpation GI Narrative: FF below U Assessment & Plan (1) Vaginal delivery: COMMENT: SM IOL elective PPTL boy lindsey PLAN: s/p PPD # 1 1. routine post delivery care 2. breast feeding- support given 3. rh positive 4. rubella immune
[2021-12-19] MEDS: Naproxen 500 MG Tablet PO ×2 (08:58→17:32)
[2021-12-20] VITALS (14 sets, daily range): BP systolic 109–133; BP diastolic 56–70; PULSE 62–109; RESP 16; TEMP 36.4–37.3; O2SAT 16–99; BMI 32.4
[2021-12-20] MEDS: 0.9% Saline Lock 10 ML Syringe IV (10:26)
--- NOTE | 2021-12-20 15:20 | FALS_PTH ---
PATIENT: ALEXANDR HERNANDEZ LOC: [facility] U#:[id number] AGE/SX: 31/F ROOM: WP018 RE12/18/[address]: Dr. Deepali Conte DO : 1990 BED: 1 DIS: 12/21/2021 SPEC #: [id number] RECD: 12/21/21 06:55 STATUS: FREDDY BRENDA #: [id number] NO: 12/20/21 15:[address]: Deepali Conte DEPT: SURGICAL PATHOLOGY RECD BY: Juan Mckeon ENTERED: 12/21/21 09:52 SP TYPE: FALL TUBES OTHR DR: Paris Primary Care Phys Tissues: Fallopian tube Procedures: Surgery Specimen Level II HEADER OPERATION: bilateral tubal PRE-OP DIAGNOSIS: Elective sterilization TISSUE SUBMITTED: Bilateral fallopian tubes MICROSCOPIC DIAGNOSIS Bilateral fallopian tubes, salpingectomy: Bilateral fallopian tubes, no pathologic diagnosis. SJ:dieudonne 12/24/2021 MICROSCOPIC DESCRIPTION Slides are reviewed. GROSS DESCRIPTION Received in fixative is one container labeled with the patient's name and designated bilateral fallopian tubes. The fallopian tubes are not identified as right or left. One fallopian tube measures 6 cm in length and with a diameter of 0.4 cm. The other fallopian tube measures 3 cm in length and with an average diameter of 0.4 cm. Fimbrial ends are present. Sections reveal unremarkable cut surfaces. Trimmer Machine sections are submitted in two cassettes as follows: 1 - longer fallopian tube, 2 - shorter fallopian tube. / AM:dieudonne 12/21/2021 TC:5 CPT: 90233 x2
[2021-12-20] MEDS: Bupivacaine Mpf 0.5% 30 ML VIAL (16:41)
[2021-12-20] MEDS: Sugammadex Sodium 200 MG/2 ML VIAL IV (16:55)
--- NOTE | 2021-12-20 17:06 | PCM.OPRPT ---
Problems Associated Problem List Diagnoses (1) Vaginal delivery: (2) Sterilization: (3) Depression with anxiety: Report of Operation Date of Procedure: 12/20/21 Pre-Operative Diagnosis: desires permanent sterilization Post-Operative Diagnosis: desires permanent sterilization Surgery/Procedure Performed:: laparoscopic bilateral salpingectomy Description of Surgical Findings:: normal uterus, tubes, ovaries Surgeon: Deepali Conte Type of Anesthesia: General Specimen's removed: bilateral fallopian tubes Drains: none Estimated Blood Loss (mL): <5cc Fluids Replaced: 1000cc Description of Procedure: The patient was brought to the operating room where general anesthesia was found to be adequate. She was prepped and draped in the normal sterile fashion in a dorsal supine position. An infraumbilical skin incision was made with a scalpel and carried through to the underlying layers of fascia. Abdominal packing was used to move the omentum and bowel away from the uterus however with multiple attempts the uterus was noted to be very low in the pelvis and deep in the pelvis. The decision was made to convert to laparoscopy. Pursestring incision was made around the fascia of the initial incision and a 10 mm trocar was inserted into the abdomen. The bulb of the trocar was inflated to create a good seal. CO2 gas was used to insufflate the abdomen and the patient was placed in Trendelenburg position. Approximately 10 cm lateral to the midline on the left side a 5 mm incision was made and a 5 mm trocar was inserted into the abdomen under direct visualization. A mini grasper was also used to grasp the left fallopian tube. The underlying mesosalpinx was cauterized and cut and the fallopian tube was removed through the 5 mm laparoscopic port site. The same procedure was performed on the right side. Both tubal portions were passed off for pathology analysis. Excellent hemostasis was noted at both tubal sites. Complications none Admit VTE Documentation VTE Present on Admission: Yes VTE Mechan Device Prophylaxis: SCD's VTE Pharm Prophylaxis ordered?: No Reason prophylaxis not ordered:: Treatment Not Indicated Multi Select Codes Urinary/Genital Urinary/Genital CPT Codes: 80881 Laproscopic BS/O
[2021-12-20] MEDS: Acetaminophen 500 MG Tablet 1000 MG PO (22:16)
[2021-12-21 01:40] VITALS: TEMP 36.7
[2021-12-21 01:42] VITALS: BP 114/58; PULSE 76
[2021-12-21 01:43] VITALS: BP 114/58; PULSE 76; RESP 14; TEMP 36.4
[2021-12-21] MEDS: Naproxen 500 MG Tablet PO (02:07)
[2021-12-21] MEDS: oxyCODONE 5 MG Tablet PO ×2 (05:32→10:49)
[2021-12-21 07:37] VITALS: BP 119/66; PULSE 69; RESP 18; TEMP 37; TEMP 37.1; O2SAT 97
[2021-12-21 07:38] VITALS: BP 119/66; PULSE 64
--- NOTE | 2021-12-21 07:40 | PCM.PN.OB ---
Subjective Subjective Patient doing well without complaints. Tolerating PO. Ambulating and voiding without difficulty. feeding well. Denies chest pain, shortness of breath, calf pain/swelling, fevers, chills, lightheadedness. Objective Data Objective Data Vital Signs: Vital Signs Temp Pulse Resp BP Pulse Ox 98.7 F 64 18 119/66 97 12/21/21 07:37 12/21/21 07:38 12/21/21 07:37 12/21/21 07:38 12/21/21 07:37 Oxygen Delivery Method Room Air Weight: 189 lb Body Mass Index (BMI) 32.4 Intake & Output: Intake and Output for Last 24 Hours 12/19/21 12/20/21 12/21/21 23:59 23:59 23:59 Output Total 200 / 200 Balance -200 / -200 Lab / Micro Data Result Diagrams: 12/18/21 08:20 Micro: Microbiology 12/18/21 08:20 Nasal Secretion SARS-CoV-2 Antigen (Rapid) - Final ROS Constitutional Constitutional: Reports systems reviewed and no addt'l complaints, except as documented Cardiovascular Cardiovascular: Reports systems reviewed and no addt'l complaints, except as documented Respiratory/Chest Respiratory/Chest: Reports systems reviewed and no addt'l complaints, except as documented Gastrointestinal Gastrointestinal: Reports systems reviewed and no addt'l complaints, except as documented Physical Exam Const alert, oriented x3 and no apparent distress HEENT Head and Scalp: atraumatic Resp normal respiratory effort GI soft to palpation and non-tender Bimanual Exam - Vag & Uterus: uterus non-tender Uterus Palpation: uterus fundus firm (below Umbilicus) Assessment & Plan (1) Vaginal delivery: COMMENT: SM IOL elective PPTL boy lindsey PLAN: s/p PPD # 3 1. routine post delivery care 2. breast feeding- support given 3. rh positive 4. rubella immune
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
--- NOTE | 2021-12-25 15:13 | NURSING ---
Follow up call attempted, no answer, left voicemail.
== END 2021-12-21 11:00 | disposition home or self-care (01) | DRG 541 ==
PROVIDERS: Obstetrics & Gynecology; Admitting Provider Obstetrics & Gynecology; Referring Provider Obstetrics & Gynecology; Visit Provider Obstetrics & Gynecology
PROC: 0UL70ZZ Occlusion of Bilateral Fallopian Tubes, Open Approach (ICD-10-PCS; principal; 2021-12-20 15:05)
DX: O99.344 Other mental disorders complicating childbirth (principal); Z37.0 Single live birth; O22.43 Hemorrhoids in pregnancy, third trimester; F41.8 Other specified anxiety disorders; Z30.2 Encounter for sterilization; F43.10 Post-traumatic stress disorder, unspecified; Z3A.39 39 weeks gestation of pregnancy; O26.23 Pregnancy care for patient with recurrent pregnancy loss, third trimester; Z28.310 Unvaccinated for COVID-19; Z28.21 Immunization not carried out because of patient refusal
CPT/HCPCS: 59025; 59050; 85025; 86850; 86900; 86901; 87426; 88302; 99218; J7120; A4216; G0378; J2405